=== PATIENT | female | born 1935 ===

== ENCOUNTER 2017-03-20 06:17 | Day surgery (SDC) | payer MEDICARE, OTHER ==
--- NOTE | 2017-03-17 17:30 | Pre-op HX & Phy Repo 2 SIG ---
DATE OF ADMISSION: 03/20/2017 POSTOPERATIVE DIAGNOSIS: Partially dislocated intraocular lens with opaque anterior capsule, left eye. PROCEDURES TO BE PERFORMED: 1. Pars plana vitrectomy. 2. Scissor dissection and removal of anterior capsule. 3. Possible IOL replacement, left side with a +19 diopter anterior chamber lens. SURGEON: Juan J Boyer M.D. BRIEF NOTE: This is a first [place] admission for the patient, who is a very nice 81-year-old lady, who complains of cloudy vision in the left eye that never cleared after a cataract and laser surgery in late 2015. PAST OCULAR HISTORY: Remarkable for the surgery on that side. She had a YAG laser in August of last year. MEDICAL HISTORY: Remarkable for hypertension and elevated cholesterol. MEDICATIONS: 1. She is on atorvastatin. 2. Mirtazapine, omeprazole, lisinopril, and gabapentin. ALLERGIES: She has no known allergies. PHYSICAL EXAMINATION: Best vision at the time of admission was 20/40 -2 on the right eye and 20/60 -1 in the left with pressures of 16 and 11. The anterior segment showed sluggish reaction in either eye. The anterior segment on the right showed a cortical lens opacification and nuclear sclerosis with what appeared to be pseudoexfoliation of the lens capsule. The left eye showed a posterior chamber lens that appeared partially dislocated. There was a very hazy anterior capsule with only a small central opening. Posterior capsule showed a capsulotomy. Fundus examination of the right eye showed a 0.35 cup. The posterior segment appeared normal. The left showed what appeared to be of the optic nerve. The retina was all attached. General physical examination was done by the patient's senior network security engineer. ASSESSMENT: 1. Secondary cataract with anterior capsular opacification, left eye. 2. 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 PLAN: The plan is to perform surgery as noted above, which would include a vitrectomy, surgical enlargement of the anterior capsule, and possible removal and replacement of the intra-ocular lens. The risks and benefits of the surgery were gone over with the patient with potential for infection, hemorrhage, glaucoma, and remote possibility of loss of the eye. The risk of anesthesia discussed. The patient understands and consents to the surgery, which will be performed on Monday. Juan J Boyer M.D. DR: NAVA JOB#: [id number] CC:
[2017-03-20] VITALS (10 sets, daily range): BP systolic 107–143; BP diastolic 57–78
[~2017-03-20] VITALS: Ht 152.4 cm; Wt 71.7 kg
[~2017-03-20 06:17] MED LIST: Cyclopentolate 1% Opth Sol ONE; Flurbiprofen 0.03% Opth Sol 2.5ml ONE; Gatifloxacin Opth Solution 0.5% ONE; Phenylephrine 2.5% Op Soln ONE; Pred Forte 1% Opth Susp 1ml LEFT EYE ONE
[2017-03-20] MEDS: Phenylephrine 2.5% Op Soln LEFT EYE SCH ×3 (06:50→07:01)
[2017-03-20] MEDS: Flurbiprofen 0.03% Opth Sol 2.5ml LEFT EYE SCH ×3 (06:50→07:02)
[2017-03-20] MEDS: Cyclopentolate 1% Opth Sol LEFT EYE SCH ×3 (06:50→07:02)
[2017-03-20] MEDS: Gatifloxacin Opth Solution 0.5% LEFT EYE SCH ×3 (06:51→07:02)
[2017-03-20] MEDS ORDERED: VITAMIN D1000 UNI1 ORAL (07:04)
[2017-03-20] MEDS ORDERED: GABAPENTIN300 MG ORAL (07:04)
[2017-03-20] MEDS ORDERED: REMERON15 MG ORAL (07:04)
[2017-03-20] MEDS ORDERED: LISINOPRIL2.5 MG ORAL (07:04)
[2017-03-20] MEDS ORDERED: ATORVASTATIN CA20 MG ORAL (07:04)
[2017-03-20] MEDS ORDERED: OMEPRAZOLE20 M2 ORAL (07:04)
[2017-03-20] MEDS ORDERED: BSS 500ml btl ONE (07:19)
[2017-03-20] MEDS ORDERED: Kenalog-40 1ml Vial ONE (07:19)
[2017-03-20] MEDS ORDERED: Tetracaine 0.5% Opth Soln ONE (07:20)
[2017-03-20] MEDS ORDERED: Maxitrol Opth Oint 3.5gm ONE (07:20)
[2017-03-20] MEDS ORDERED: Dexamethasone 4mg/ml vial ONE (07:20)
[2017-03-20] MEDS ORDERED: Povidone-Iodine 5% opth solution ONE (07:21)
[2017-03-20] MEDS ORDERED: Kenalog-10 5ml Inj ONE (07:21)
[2017-03-20] MEDS ORDERED: EPINEPHrine 1mg/1ml Amp ONE (07:21)
[2017-03-20] MEDS ORDERED: Lidocaine 2% MPF 5ml Vial INJ ONE (07:21)
[2017-03-20] MEDS ORDERED: Bupivacaine 0.75% 30ml vial INJ ONE (07:22)
[2017-03-20] MEDS ORDERED: Sodium Hyaluronate 10 mg/ml 0.85ml ONE (07:22)
[2017-03-20] MEDS ORDERED: BSS 15ml BTL ONE (07:22)
[2017-03-20] MEDS ORDERED: Pred Forte 1% Opth Susp 1ml LEFT EYE ONE (07:30)
--- NOTE | 2017-03-20 07:37 | Pre-Procedure Note/Attestation ---
Pre-Procedure Note/Attestation Complete Prior to Procedure Planned Procedure: right Procedure Narrative: PPV, dissection and removal of opaque anterior and posterior capsules L eye. Possible IOL exchange. Indications for Procedure Pre-Operative Diagnosis: Partial IOL dislocation with opacified anterior and posterior capsules L eye Attestation I attest that I discussed the nature of the procedure; its benefits; risks and complications; and alternatives (and the risks and benefits of such alternatives ), prior to the procedure, with the patient (or the patient's legal counter sales representative). I attest that, if there was a reasonable possibility of needing a blood transfusion, the patient (or the patient's legal counter sales representative) was given the [place] Department [employer] standardized written summary, pursuant to the [place] Blood Safety Act ([place] Health and Safety Code # 1645, as amended). I attest that I re-evaluated the patient just prior to the surgery and that there has been no change in the patient's H&P, except as documented below: AMELIA HODGE Mar 20, 2017 07:37
[2017-03-20] MEDS ORDERED: LR 1000ml 1,000 ML IVLG SCH ×2 (07:40)
--- NOTE | 2017-03-20 07:40 | Anethesia Preoperative Eval ---
Anesthesia Pre-op PMH/ROS General Date of Evaluation: Mar 20, 2017 Time of Evaluation: 07:31 Anesthesiologist: Jamee ASA Score: ASA 3 Mallampati Score Class I : Soft palate, uvula, fauces, pillars visible Class II: Soft palate, uvula, fauces visible Class III: Soft palate, base of uvula visible Class IV: Only hard plate visible Mallampati Classification: Class III Surgeon: Merlin Diagnosis: Dislocated Lens Surgical Procedure: Vitrectomy OS Anesthesia History: none Family History: no anesthesia problems Allergies: Coded Allergies: No Known Allergies (Unverified , 03/17/17) Medications: see eMAR Past Medical History Cardiovascular: Reports: HTN, other - HL HEENT: Reports: cataract (L), cataract (R) Other: obesity - BMI 31 Anesthesia Pre-op Phys. Exam Physician Exam Last Vital Signs Date Time Temp Pulse Resp B/P Pulse Ox O2 Delivery O2 Flow Rate FiO2 03/20/17 07:01 97.3 78 18 143/75 97 Room Air Constitutional: NAD Neurologic: CN 2-12 intact Cardiovascular: RRR Respiratory: CTA Gastrointestinal: S/NT/ND Airway Exam Mallampati Score: Class III MO: limited ROM: limited Teeth: missing Anesthesia Pre-op A/P Risk Assessment & Plan Assessment: ASA 3 Plan: Hal Lynch MD Mar 20, 2017 07:40
--- NOTE | 2017-03-20 07:42 | 48 Hour Post Anesthesia Eval ---
Post Anesthesia Evaluation Procedure: Vitrectomy OS Date of Evaluation: Mar 20, 2017 Time of Evaluation: 11:11 Blood Pressure Systolic: 158 0: 86 Pulse Rate: 76 Respiratory Rate: 18 Temperature (Fahrenheit): 97.4 O2 Sat by Pulse Oximetry: 96 Airway: patent Nausea: No Vomiting: No Pain Intensity: 1 Hydration Status: adequate Cardiopulmonary Status: Stable Mental Status/LOC: patient returned to baseline Follow-up Care/Observations: 0 Post-Anesthesia Complications: 0 Follow-up care needed: ready to discharge Hal Mancuso MD Mar 20, 2017 07:42
--- NOTE | 2017-03-20 07:42 | Immediate Post-Op Evaluation ---
Immediate Post-Op Evalulation Immediate Post-Op Evalulation Procedure: Vitrectomy OS Date of Evaluation: Mar 20, 2017 Time of Evaluation: 08:59 IV Fluids: 500 LR Blood Products: 0 Estimated Blood Loss: 1 Urinary Output: 0 Blood Pressure Systolic: 117 Blood Pressure Diastolic: 65 Pulse Rate: 66 Respiratory Rate: 16 O2 Sat by Pulse Oximetry: 96 Temperature (Fahrenheit): 97.3 Pain Score (1-10): 1 Nausea: No Vomiting: No Complications 0 Patient Status: awake, reacts, patent, none Hydration Status: adequate Hal Mancuso MD Mar 20, 2017 07:42
[2017-03-20] MEDS ORDERED: Ketorolac 30mg Inj IV PRN ×2 (07:45)
[2017-03-20] MEDS ORDERED: Midazolam 2mg/2ml Inj IVP PRN ×2 (07:45)
[2017-03-20] MEDS ORDERED: Hydromorphone 0.5mg/0.5ml inj IVP PRN ×2 (07:45)
[2017-03-20] MEDS ORDERED: fentaNYL 100 mcg/2 mL IV PRN ×2 (07:45)
[2017-03-20] MEDS ORDERED: Norco 5mg/325mg tab ORAL PRN ×3 (07:45)
[2017-03-20] MEDS ORDERED: Atropine Inj 1mg/10ml Syr IV PRN ×2 (07:45)
[2017-03-20] MEDS ORDERED: Metoclopramide 10mg/2ml Inj IVP PRN ×2 (07:45)
[2017-03-20] MEDS ORDERED: Norco 7.5mg/325mg tab ORAL PRN ×2 (07:45)
[2017-03-20] MEDS ORDERED: Ketorolac 60mg Inj IV PRN ×2 (07:45)
[2017-03-20] MEDS ORDERED: Meperidine 25mg/0.5ml Inj IV PRN ×2 (07:45)
[2017-03-20] MEDS ORDERED: LORazepam Inj 2mg/ml 1ml IV PRN ×2 (07:45)
[2017-03-20] MEDS ORDERED: Oxycodone/Acetaminophen 5-325 ORAL PRN ×2 (07:45)
[2017-03-20] MEDS ORDERED: DiphenhydrAMINE 50mg/ml Inj IVP PRN ×2 (07:45)
--- NOTE | 2017-03-20 08:57 | Brief Operative Note ---
Immediate Post Operative Note Operative Note Pre-op Diagnosis: Partial IOL dislocation with opacified anterior and posterior capsules L eye Procedure: PPV, dissection and removal of anterior capsule opacity, lateral canthotomy formation and closure, endolaser 72 spots L eye Post-op Diagnosis: same as pre-op plus - Posterior retinal tuft with pigment, Small palpebral opening Surgeon: hannah Anesthesiologist: Porfirio Anesthesia: MAC Specimen: none Complications: none Condition: stable Estimated Blood Loss: none Implant(s) used?: No AMELIA HODGE Mar 20, 2017 08:57
--- NOTE | 2017-03-20 11:00 | Operative Note - Dictated ---
DATE OF SURGERY: 03/20/2017. PREOPERATIVE DIAGNOSIS: Dense opacified anterior and posterior capsules,e left eye. POSTOPERATIVE DIAGNOSIS: Dense opacified anterior and posterior capsules of the left eye with posterior retinal Left eye. SURGEON: Juan J Boyer M.D. ELECTRONIC SCALE TESTER: None. ANESTHESIA: Local sedation. ANESTHESIOLOGIST: Dr. Mancuso. JUSTIFICATION FOR SURGERY: This 82-year-old lady underwent cataract surgery previously and developed a dense opacification of the anterior capsule. This could not be safely removed with laser. She was admitted for repair. BRIEF NOTE: The patient brought to the operative room, placed on operating room table in supine position. After a time-out was performed and agreed upon by the staff and initial monitoring secured by Dr. Mancuso. Retrobulbar and Van Lint blocks were given in the standard way. When the blocks taken effect, she was prepped and draped in normal manner. A lid speculum was inserted into the left eye. Using a 23-gauge trocar system, cannulas were placed all except infranasal quadrant. Infusion secured inferotemporally. Because of the small palpebral opening, lateral canthotomy roughly 4 mm in length was cut for better visualization. A MVR blade, 23-gauge was used to enter the anterior chamber at the 11 o'clock position. Healon was placed into chamber for stabilization. The anterior capsule was perforated with the MVR blade in a gentle fashion without manipulating the lens. The excision was extended left and right. Intra-ocular scissors, 23-gauge were then introduced into the anterior chamber and with careful manipulation a circular area of capsular opening was cut. The vitreous cutter was then placed inside to remove debris and enlarged opening for roughly 5 mm. This went without difficulty. The Healon was evacuated from the eye and the wound was closed with 2 interrupted 10-0 nylon sutures with the knots buried. The vitrectomy was then begun with vitreous debris being removed from the posterior capsule and the capsular opening enlarged to match the size of the anterior opening. The lens was noted to remain solidly in position. Additional vitrectomy was done to remove vitreous debris and old capsular material that followed posteriorly. A small pigmented was noted in the retina along the superotemporal arcade and this was prophylactically lasered with 72 spots of endolaser. Scleral depression was done and no peripheral breaks, tears, or detachments were seen. The instruments were then removed from the eye and all capsulotomy was closed with a single suture of 8-0 Vicryl. The same 8-0 Vicryl was used and 3 sutures to close the lateral canthotomy with the knots buried. Subconjunctival Decadron and gentamicin were then injected and Maxitrol and atropine ointments were instilled. The eye was patched and shielded. The patient taken to recovery in excellent condition. There were no complications. Juan J Boyer M.D. DR: Sangeetha JOB#: [id number] CC:
== END 2017-03-20 10:30 | disposition home or self-care (01) ==
LOC: SUR 06:17
DX: H26.492 Other secondary cataract, left eye (principal); T85.22XA Displacement of intraocular lens, initial encounter; Y83.8 Other surgical procedures as the cause of abnormal reaction of the patient, or of later complication, without mention of misadventure at the time of the procedure; Y92.89 Other specified places as the place of occurrence of the external cause; E66.9 Obesity, unspecified; Z68.31 Body mass index [BMI] 31.0-31.9, adult; I10 Essential (primary) hypertension; E78.00 Pure hypercholesterolemia, unspecified; M06.9 Rheumatoid arthritis, unspecified; E55.9 Vitamin D deficiency, unspecified
CPT/HCPCS: 67036; J0171; J1100; J3470; J3490; 94003; 94150